=== PATIENT | female | born 1935 | race Caucasian/White ===

== ENCOUNTER 2017-05-18 08:40 | Day surgery (SDC) | payer OTHER, MEDICARE ==
[2017-05-15 09:35] LABS: Absolute Lymphocytes (CBC) 1.3 K/uL (0.7-4.9); Absolute Monocytes 0.5 K/uL (0.1-1.3); Absolute Neutrophil 2.7 K/uL (1.8-8.0); Basophils % 0.7 % (0-1.3); Eosinophils % 1.5 % (0-4.4); Hematocrit 40.1 % (36.0-45.0); MCH 29.4 pg (27.0-35.0); MCV 92.9 fL (80-100); Monocytes % 10.2 % (3.3-12.3); RBC Red Blood Cell Count 4.32 M/uL (3.86-4.86)
[2017-05-15 10:14] LABS: Potassium 4.3 mEq/L (3.6-5.0)
--- OUTSIDE RECORDS SUMMARY | 2017-05-18 08:43 | XMS REPORT ---
:1935 [facility] [place] [address] Care Team Providers Name Role Phone JEFFERSON DIAZ Primary Care Provider Unavailable JEFFERSON DIAZ Unavailable Unavailable Problems This patient has no known problems. Allergies, Adverse Reactions, Alerts This patient has no known allergies or adverse reactions. Medications This patient has no known medications. Results Test Description Test Time Test Comments Text Results Atomic Results Result Comments Lipid Profile 2016-12-02 22:39:00 Test Item Value Reference Range Comments Cholesterol (test code=CHOL) 143 mg/dL 0-200 Triglycerides (test code=TRIG) 130 mg/dL 9-200 HDL (test code=HDL) 51 mg/dL 50-60 Chol/HDL (test code=CHOLPHDL) 2.8 Ratio 0.0-4.4 LDL, Calculated (test 66 mg/dL 0-130 (NOTE)RISK OF HEART DISEASEPublished code=LDLC) by Slovenian Heart AssociationAnalyte Optimal Boderline Increased RiskCHOL <200 200-239 >240TRIG <150 150-199 >200HDL Male: >60 <40HDL Female: >60 <50LDL <100 130-159 >160LDL NEAR OPTIMAL IS 100-129 VLDL (test code=VLDL) 26 mg/dL 5-40 LDL/HDL (test code=LDLPHDL) 1 Comprehensive Metabolic [id number] 22:39:00 Test Item Value Reference Range Comments Sodium (test code=NA) 140 mmol/L 135-145 Potassium (test code=K) 4.7 mmol/L 3.5-5.1 Chloride (test code=CL) 103 mmol/L 98-105 Carbon Dioxide (test 27 mmol/L 22-29 code=CO2) Glucose (test code=GLU) 81 mg/dL 70-115 Blood Urea Nitrogen 11 mg/dL 8-23 (test code=BUN) Creatinine (test 0.8 mg/dL 0.5-0.9 code=CREAT) Calcium (test code=CA) 9.3 mg/dL 8.3-10.5 Prot Total (test 6.3 g/dL 6.4-8.3 code=TP) Albumin (test code=ALB) 4.1 g/dL 3.5-5.2 A/G Ratio (test 1.9 Ratio code=AGRATIO) Globulin (test 2.2 2.9-3.1 code=GLOB) Bili Total (test 0.3 mg/dL 0.1-0.9 code=TBIL) Alk Phos (test 65 U/L 35-104 code=APHOS) AST (test code=AST) 6 U/L 1-32 ALT (test code=ALT) 10 U/L 1-33 BUN/Creatinine Ratio 13.8 (test code=BCRATIO) Anion Gap (test 10 mmol/L 7-16 code=AGAP) Estimated GFR (test >60 eGFR (estimated Glomerular code=GFR) mL/min/1.73m2 Filtration Rate) is an estimated value,calculated from the patient's serum creatinine using the MDRD equation.It is NOT the patient's actual GFR. The eGFR provides a more clinicallyuseful measure of kidney disease than serum creatinine alone.This calculation takes sex and race into account, if the informationis provided. If the race is not provided, and the patient isAfrican-Slovenian, multiply by 1.212. If sex is not provided, and thepatient is female, multiply by 0.742. Results for patients <18 years ofage have not been validated by the MDRD study and should be interpretedwith caution.eGFR Result Interpretation:eGFR > or=60 is in the Normal RangeeGFR < 60 may mean kidney diseaseeGFR < 15 may mean kidney failureRanges recommended by the National Kidney Foundation,http://nkdep.ni h.gov [id number] 22:38:00 Test Item Value Reference Range Comments NT ProBnp (test code=PBNP) 1656 pg/mL 0-449 CBC with [id number] 22:32:00 Test Item Value Reference Range Comments WBC (test code=WBC) 4.9 K/cumm 4.4-10.5 RBC (test code=RBC) 4.10 M/cumm 3.75-5.20 Hemoglobin (test code=HGB) 12.4 gm/dL 12.2-14.8 Hematocrit (test code=HCT) 40.8 % 36.5-44.4 MCV (test code=MCV) 99.4 fL 80-100 MCH (test code=MCH) 30.2 pg 27.0-32.5 MCHC (test code=MCHC) 30.4 g/dL 32.0-37.5 RDW (test code=RDW) 13.0 % 11.5-14.5 Platelet Count (test code=PLTCT) 280 K/cumm 140-440 MPV (test code=MPV) 8.6 fL Diff Method (test code=DIFFM) Auto Neutrophil (test code=NEUT) 51.4 % 36-70 Lymphocyte (test code=LYMPH) 34.7 % 12-44 Monocyte (test code=MONO) 11.5 % 0-11 Eosinophil (test code=EOS) 1.7 % 0-7 Basophil (test code=BASO) 0.7 % 0-2 Neutro Abs (test code=ANEUT) 2.5 K/cumm 1.6-7.4 Lymph Abs (test code=ALYMPH) 1.7 K/cumm 0.5-4.6 [place] Abs (test code=AMONO) 0.6 K/cumm 0.0-1.2 Eos Abs (test code=AEOS) 0.08 K/cumm 0.00-0.74 Baso Abs (test code=ABASO) 0.0 K/cumm 0.00-0.21
--- OUTSIDE RECORDS SUMMARY | 2017-05-18 08:43 | XMS REPORT | Clinical Summary ---
:1935 Author Organization [facility] Address [address] [place] [address] Care Team Providers Name Role Phone Tai Edwards MD Primary Care Provider Allergies No Known Allergies Current Medications Prescription Sig. Disp. Refills Start Date End Date Status apixaban (ELIQUIS) 2.5 mg Take 2.5 mg by Active tablet mouth 2 (two) times a day. digOXIN 0.25 mg/5 mL (5 Take 0.25 mg by Active mL) solution mouth daily. sertraline (ZOLOFT) 25 MG Take 25 mg by Active tablet mouth daily. donepezil (ARICEPT) 5 MG Take 1.5 mg by Active tablet mouth nightly. Active Problems Not on file Encounters Date Type Specialty Care Team Description 05/07/2017 Orders Only Neurology Adelina Goldberg, Memory loss MA 05/04/2017 Procedure visit Neurology Memory loss 05/01/2017 Hospital Encounter Radiology Glenna Langley Sin Memory loss DO Winnie 04/06/2017 Lab Lab Glenna Langley Sin Memory loss DO Winnie 04/06/2017 Office Visit Neurology Glenna Langley Memory loss (Primary Dx) DO Winnie after 05/17/2016 Family History Medical History Relation Name Comments Lung cancer Daughter Stroke Mother Hypertension Son Relation Name Status Comments Daughter Mother Son Alive Social History Tobacco Use Types Packs/Day Years Used Date Never Smoker Smokeless Tobacco: Never Used Alcohol Use Drinks/Week oz/Week Comments No Sex Assigned at Date Recorded Not on file Last Filed Vital Signs Vital Sign Reading Time Taken Blood Pressure 118/74 04/06/2017 12:38 PM SAP ADMINISTRATOR Pulse 59 04/06/2017 12:38 PM SAP ADMINISTRATOR Temperature - - Respiratory Rate - - Oxygen Saturation - - Inhaled Oxygen Concentration - - Weight - - Height - - Body Mass Index - - Plan of Treatment Date Type Specialty Care Team Description 05/22/2017 [place] [address] [facility] [address] [place] [address] Health Maintenance Due Date Last Done Comments ZOSTER VACCINE 1993 PNEUMOCOCCAL POLYSACCHARIDE VACCINE AGE 65 AND OVER 1998 PNEUMOCOCCAL-13 1998 INFLUENZA VACCINE 09/30/2016 12/05/[address] Head Wo Contrast (05/01/2017 2:13 PM) Specimen Performing Laboratory [facility] [address] [place] [address] Narrative EXAMINATION:CT HEAD WO CONTRAST COMPARISON:None CLINICAL HISTORY:R41.3 Other amnesia, left leg ataxia TECHNIQUE: Up to date CT equipment and radiation dose reduction technique were utilized. 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 There are small vessel ischemic changes of the white matter. There are no other areas of abnormal density. There is no mass or extra-axial fluid collection. The ventricles and sulci are prominent compatible with age-related volume loss. There are calcifications in the internal carotid arteries. The sinuses and mastoids are clear. IMPRESSION: Chronic age-related changes. [id number] Procedure Note Interface, Radiology Results Incoming - 05/01/2017 2:21 PM SAP ADMINISTRATOR EXAMINATION: CT HEAD WO CONTRAST COMPARISON: None CLINICAL HISTORY: R41.3 Other amnesia, left leg ataxia TECHNIQUE: Up to date CT equipment and radiation dose reduction technique were utilized. 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 There are small vessel ischemic changes of the white matter. There are no other areas of abnormal density. There is no mass or extra-axial fluid collection. The ventricles and sulci are prominent compatible with age-related volume loss. There are calcifications in the internal carotid arteries. The sinuses and mastoids are clear. IMPRESSION: Chronic age-related changes. [id number] Thyroid stimulating hormone (04/06/2017 2:14 PM) Component Value Ref Range TSH 1.76 0.27 - 4.20 uIU/mL Specimen Performing Laboratory Blood [facility] DEPARTMENT OF PATHOLOGY AND GENOMIC MEDICINE [address] [facility] [place] [address] Vitamin B12 level (04/06/2017 2:14 PM) Component Value Ref Range Vitamin B12 283 211 - 946 pg/mL Comment: Significant overlap exists between normal and deficiency states. However, most patients with deficiencies will have Serum B12 <200 pg/mL. Specimen Performing Laboratory Serum [facility] DEPARTMENT OF PATHOLOGY AND GENOMIC MEDICINE [address] [place] [address] after 05/17/2016 Insurance Payer Benefit Plan / Group Subscriber ID Type Phone Address MEDICARE MEDICARE PART A AND B xxxxxxxxxx Medicare [place], [place] AAR AARP SUPPLEMENT xxxxxxxxx xx Commercial Home: 1921 [phone] [address]
[2017-05-18] MEDS ORDERED: NS 0.9% VIAL 10 ML ONE (09:37)
[2017-05-18] MEDS ORDERED: DUOVISC 1 KIT OPTH ONE (09:38)
[2017-05-18] MEDS ORDERED: MOXIFLOXACIN HCL 10 DROPS/ML **OR USE OPTH ONE (09:38)
[2017-05-18] MEDS ORDERED: BALANCED SALT IRRIG PLAIN 500 ML BTL IRR ONE (09:38)
[2017-05-18] MEDS ORDERED: EPINEPHRINE/PF 1 MG/ML AMP ONE ×2 (09:38→11:24)
[2017-05-18] MEDS ORDERED: CYCLOPENTOLATE 1% OPTH 2 ML ONE (09:50)
[2017-05-18] MEDS ORDERED: NA CHLORIDE 0.9% 500 ML ONE (09:50)
[2017-05-18] MEDS ORDERED: PHENYLEPHRINE 10% OPTH 5ML ONE (09:51)
[2017-05-18 09:52] LABS: Protime INR 1.29
[2017-05-18] MEDS ORDERED: PHENYLEPHRINE 10% OPTH 5ML OPTH ONE ×2 (09:52→09:59)
[2017-05-18] MEDS ORDERED: CYCLOPENTOLATE 1% OPTH 2 ML OPTH ONE ×2 (09:52→09:59)
[2017-05-18] MEDS ORDERED: FENTANYL CITR 100 MCG/2 ML ONE (11:14)
[2017-05-18] MEDS ORDERED: PROPOFOL 200 MG/20 ML VIAL IV ONE (11:14)
[2017-05-18] MEDS ORDERED: LIDOCAINE 1% MPF 5 ML VIAL ONE (11:14)
--- NOTE | 2017-05-18 11:49 | P.BOP ---
Preoperative diagnosis: Nuclear sclerotic cataract OD Postoperative diagnosis: Same Primary procedure: Phacoemulsification with IOL OD Estimated blood loss: None Anesthesia: General Complications: None Implants: [id number] +22.0 Transferred to: Recovery Room Condition: Good
[2017-05-18] MEDS ORDERED: EPHEDRINE SULF 50 MG/5 ML SYR ONE (11:51)
--- NOTE | 2017-05-18 21:12 | OP ---
Date of Procedure: 05/18/2017 Surgeon: Tory Null MD Anesthesiologist: 1. Suki Cordoba CRNA. 2. Francisco Teran CRNA. 3. Gene Naik M.D. Preoperative Diagnosis: Nuclear sclerotic cataract and cortical cataract OD (right eye). Operation Performed: Phacoemulsification with intraocular lens implant, OD (right eye). Anesthesia: General. Complications: None. Description Of Procedure: In the operating room the patient was prepped and draped in the usual ster ile fashion for ophthalmic surgery. A lid speculum was placed in the OD. Two paracentesis sites wer e made superiorly and inferiorly in the limbal cornea. Viscoat was placed in the anterior chamber an d a crescent blade was used to make a corneal groove and tunnel, and a keratome was used to enter the anterior chamber. Provisc was placed in the anterior chamber and a 360 degree capsulotomy was perfo rmed with a cystitome. The lens was hydrodissected with BSS and rotated freely. The lens was remove d with a stop and chop technique. A 5.59 phaco CDE was used to remove the lens. Residual cortex was removed with the irrigation and aspiration. Provisc was placed in the capsular bag. A ZCB00+ 22.0 diopter lens was placed in the capsular bag without complications. Irrigation and aspiration were us ed to remove residual viscoelastic. The paracentesis sites were hydrated with BSS. The wound and pa racentesis sites were inspected and found to be watertight. Vigamox 0.07 cc was placed intracamerall y at the end of the procedure. The eye was irrigated with balanced salt solution. The eye was patch ed with a soft cotton patch and Foy metal shield. The patient was returned to day surgery in good condition. Comments: Discharge Instructions: Ms. Jeffries is discharged home in good condition and is to follow up with Dr. Null in the morning. FREEMAN/MODZiyad Voice ID: [id number] Report ID: [id number]
== END 2017-05-18 13:25 | disposition home or self-care (01) ==
LOC: OR 08:40
PROVIDERS: ATTEND Ophthalmology Retina Specialist
PROC: 08RJ3JZ Replacement of Right Lens with Synthetic Substitute, Percutaneous Approach (ICD-10-PCS; principal; 2017-05-18 10:00)
DX: H25.11 Age-related nuclear cataract, right eye (principal); H25.011 Cortical age-related cataract, right eye; I48.91 Unspecified atrial fibrillation; Z95.0 Presence of cardiac pacemaker
CPT/HCPCS: 36415 ×2; 66984; 80048; 85025; 85610; J0171 ×2; J3010

== ENCOUNTER 2017-06-15 09:25 | Day surgery (SDC) | payer OTHER, MEDICARE ==
[2017-06-12 10:21] LABS: Potassium 4.9 mEq/L (3.6-5.0)
--- OUTSIDE RECORDS SUMMARY | 2017-06-15 09:32 | XMS REPORT ---
:1935 [facility] Address [address] [place] [address] Dr. Liu [address] [place] [address] Care Team Providers Name Role Phone JEFFERSON [...] 0-130 (NOTE)RISK OF HEART DISEASEPublished code=LDLC) by Togolese Heart AssociationAnalyte Optimal Boderline Increased RiskCHOL <200 200-239 >240TRIG <150 150-199 >200HDL Male: >60 <40HDL Female: >60 <50LDL <100 130-159 >160LDL NEAR OPTIMAL IS 100-129 VLDL (test code=VLDL) 26 mg/dL 5-40 LDL/HDL (test code=LDLPHDL) 1 Comprehensive Metabolic [id number] 22:39:00 Test Item Value Reference Range Comments [...] race is not provided, and the patient isAfrican-Togolese, multiply by 1.212. If sex is not provided, and thepatient is female, multiply by 0.742. Results for patients <18 years ofage have not been validated by the MDRD study and should be interpretedwith caution.eGFR Result Interpretation:eGFR > or=60 is in the Normal RangeeGFR < 60 may mean kidney diseaseeGFR < 15 may mean kidney failureRanges recommended by the National Kidney Foundation,http://nkdep.ni h.gov [id number] 22:38:00 Test Item Value Reference Range Comments NT ProBnp (test code=PBNP) 1656 pg/mL 0-449 CBC with [id number] 22:32:00 Test Item Value Reference Range Comments [...] Lymph Abs (test code=ALYMPH) 1.7 K/cumm 0.5-4.6 [place] Abs (test code=AMONO) 0.6 K/cumm 0.0-1.2 Eos Abs (test code=AEOS) 0.08 K/cumm 0.00-0.74 Baso Abs (test code=ABASO) 0.0 K/cumm 0.00-0.21
--- OUTSIDE RECORDS SUMMARY | 2017-06-15 09:32 | XMS REPORT | Clinical Summary ---
:1935 Author Organization [facility] Address [address] [place] [address] Care Team Providers Name Role Phone Tai Edwards MD Primary Care Provider Allergies No Known Allergies Current Medications Prescription Sig. Disp. Refills Start Date End Date Status apixaban (ELIQUIS) Take 2.5 mg by Active 2.5 mg tablet mouth 2 (two) times a day. digOXIN 0.25 mg/5 mL Take 0.25 mg Active (5 mL) solution by mouth daily. sertraline (ZOLOFT) Take 25 mg by Active 25 MG tablet mouth daily. memantine-donepezil Take 1 capsule 30 each 1 05/22/2017 Active (NAMZARIC) 28-10 mg by mouth capsule,sprinkle,ER daily. 24hrIndications: Late onset Alzheimer's disease without behavioral disturbance donepezil (ARICEPT) Take 2.5 mg by 05/22/2017 Discontinued 5 MG tablet mouth nightly. Active Problems Problem Noted Date Late onset Alzheimer's disease without behavioral disturbance 05/22/2017 Low vitamin B12 level 05/22/2017 Encounters Date Type Specialty Care Team Description 05/22/2017 Office Visit Neurology Glenna Langley Late onset Alzheimer's disease without behavioral disturbance (Primary Dx); Winnie, DO Low vitamin B12 level; Anxiety 05/07/2017 Orders Only Neurology Adelina Goldberg, Memory loss MA 05/04/2017 Procedure visit Neurology Memory loss 05/01/2017 Hospital Encounter Radiology Glenna Langley Memory loss Winnie, 04/06/2017 Lab Lab Glenna Langley Memory loss Winnie, DO 04/06/2017 Office Visit Neurology Glenna Langley Memory loss (Primary Dx) Winnie, DO after 06/14/2016 Family History Medical History Relation Name Comments Lung cancer Daughter Stroke Mother Hypertension Son Relation Name Status Comments Daughter Mother Son Alive Social History Tobacco Use Types Packs/Day Years Used Date Never Smoker Smokeless Tobacco: Never Used Alcohol Use Drinks/Week oz/Week Comments No Sex Assigned at Date Recorded Not on file Last Filed Vital Signs Vital Sign Reading Time Taken Blood Pressure 112/78 05/22/2017 8:59 AM CDT Pulse 78 05/22/2017 8:59 AM CDT Temperature - - Respiratory Rate - - Oxygen Saturation - - Inhaled Oxygen Concentration - - Weight - - Height - - Body Mass Index - - Plan of Treatment Date Type Specialty Care Team Description 07/31/2017 [place] [address] [facility] [address] [place] [address] Health Maintenance Due Date Last Done Comments ZOSTER VACCINE 1993 PNEUMOCOCCAL POLYSACCHARIDE VACCINE AGE 65 AND OVER 1998 PNEUMOCOCCAL-13 1998 INFLUENZA VACCINE 09/30/2017 12/05/[address] Head Wo Contrast (05/01/2017 2:13 PM) Specimen Performing Laboratory [facility] [address] [place] [address] Narrative EXAMINATION:CT HEAD WO CONTRAST COMPARISON:None CLINICAL [...] mastoids are clear. IMPRESSION: Chronic age-related changes. [facility]-[id number] Procedure Note Interface, Radiology Results Incoming - 05/01/2017 2:21 PM FIRE MANAGEMENT OFFICER EXAMINATION: CT HEAD WO CONTRAST COMPARISON: None [...] mastoids are clear. IMPRESSION: Chronic age-related changes. [id number] Thyroid stimulating hormone (04/06/2017 2:14 PM) Component Value Ref Range TSH 1.76 0.27 - 4.20 uIU/mL Specimen Performing Laboratory Blood [facility] DEPARTMENT OF PATHOLOGY AND GENOMIC MEDICINE [address] [place] [address] Vitamin B12 level (04/06/2017 2:14 PM) Component Value Ref Range Vitamin B12 283 211 - 946 pg/mL Comment: Significant overlap exists between normal and deficiency states. However, most patients with deficiencies will have Serum B12 <200 pg/mL. Specimen Performing Laboratory Serum [facility] DEPARTMENT OF PATHOLOGY AND GENOMIC MEDICINE [address] [place] [address] after 06/14/2016 Insurance Payer Benefit Plan / Group Subscriber ID Type Phone Address MEDICARE MEDICARE PART A AND B xxxxxxxxxx Medicare [place], [place] AARP AARP SUPPLEMENT xxxxxxxxx xx Commercial
[2017-06-15 09:57] LABS: Protime INR 1.39
[2017-06-15] MEDS ORDERED: EPINEPHRINE/PF 1 MG/ML AMP ONE (10:52)
[2017-06-15] MEDS ORDERED: BALANCED SALT IRRIG PLAIN 500 ML BTL IRR ONE (10:52)
[2017-06-15] MEDS ORDERED: NS 0.9% VIAL 10 ML ONE (10:52)
[2017-06-15] MEDS ORDERED: NA CHLORIDE 0.9% 500 ML ONE (10:53)
[2017-06-15] MEDS ORDERED: MOXIFLOXACIN HCL 10 DROPS/ML **OR USE OPTH ONE (10:53)
[2017-06-15] MEDS ORDERED: DUOVISC 1 KIT OPTH ONE (10:53)
[2017-06-15] MEDS: CYCLOPENTOLATE 1% OPTH 2 ML ONE ×3 (11:07→11:17)
[2017-06-15] MEDS: PHENYLEPHRINE 10% OPTH 5ML ONE ×3 (11:07→11:17)
[2017-06-15] MEDS ORDERED: PROPOFOL 200 MG/20 ML VIAL IV ONE (11:12)
[2017-06-15] MEDS ORDERED: FENTANYL CITR 100 MCG/2 ML ONE (11:12)
[2017-06-15] MEDS ORDERED: LIDOCAINE 2% MPF 5 ML VIAL ONE (11:12)
[2017-06-15] MEDS ORDERED: MIDAZOLAM HCL 2 MG/2 ML INJ ONE (11:13)
--- NOTE | 2017-06-15 12:51 | P.BOP ---
Preoperative diagnosis: Nuclear sclerotic cataract OS Postoperative diagnosis: Same Primary procedure: Phacoemulsification with IOL OS Estimated blood loss: None Anesthesia: General Complications: None Implants: [id number] +21.5 Transferred to: Recovery Room Condition: Good
--- NOTE | 2017-06-15 23:34 | OP ---
Date of Procedure: 06/15/2017 Surgeon: Tory Null MD Anesthesiologist: 1. Francisco Whiting CRNA. 2. Emigdio Parker M.D. 3. Luci Ang CRNA. Preoperative Diagnosis: Nuclear sclerotic cataract, OS (left eye). Operation Performed: Phacoemulsification with intraocular lens implant, OS (left eye). Anesthesia: General. Complications: None. Description Of Procedure: In the operating room the patient was prepped and draped in the usual ster ile fashion for ophthalmic surgery. A lid speculum was placed in the OS. Two paracentesis sites wer e made superiorly and inferiorly in the limbal cornea. Viscoat was placed in the anterior chamber an d a crescent blade was used to make a corneal groove and tunnel, and a keratome was used to enter the anterior chamber. Provisc was placed in the anterior chamber and a 360 degree capsulotomy was perfo rmed with a cystitome. The lens was hydrodissected with BSS and rotated freely. The lens was remove d with a stop and chop technique. A 8.36 phaco CDE was used to remove the lens. Residual cortex was removed with the irrigation and aspiration. Provisc was placed in the capsular bag. A ZCB00 +21.5 diopter lens was placed in the capsular bag without complications. Irrigation and aspiration was use d to remove residual viscoelastic. The paracentesis sites were hydrated with BSS. The wound and par acentesis sites were inspected and found to be watertight. Vigamox 0.07 cc was placed intracamerally at the end of the procedure. The eye was irrigated with balanced salt solution. The eye was patche d with a soft cotton patch and Foy metal shield. The patient was returned to day surgery in good condition. Discharge Instructions: Ms. Jeffries is discharged to home in good condition and is to follow up [facility] Dr. Null in the morning. FREEMAN/EMEKA Voice ID: [id number] Report ID: [id number]
== END 2017-06-15 14:38 | disposition home or self-care (01) ==
LOC: OR 09:25
PROVIDERS: ATTEND Ophthalmology Retina Specialist
PROC: 08RK3JZ Replacement of Left Lens with Synthetic Substitute, Percutaneous Approach (ICD-10-PCS; principal; 2017-06-15 11:00)
DX: H25.12 Age-related nuclear cataract, left eye (principal); I48.91 Unspecified atrial fibrillation; Z95.0 Presence of cardiac pacemaker
CPT/HCPCS: 36415 ×2; 66984; 80048; 85610; J0171; J3010; J2250